=== PATIENT | male | born 1980 | race Caucasian/White ===

== ENCOUNTER 2017-04-25 13:16 | Outpatient (RCR) | payer OTHER ==
[~2017-04-25 13:16] MED LIST: FLEXERIL 1010 MG/TAB PO
== END 2017-05-15 14:40 | disposition still patient (30) ==
LOC: WSOH 13:16
DX: S29.012D Strain of muscle and tendon of back wall of thorax, subsequent encounter (principal); X50.0XXD Overexertion from strenuous movement or load, subsequent encounter; Y99.0 Civilian activity done for income or pay

== ENCOUNTER 2017-05-30 15:15 | Outpatient (RCR) | payer OTHER | END 2017-08-28 | disposition home or self-care (01) | LOC: WSOH | DX: S63.501A Unspecified sprain of right wrist, initial encounter (principal); X50.0XXA Overexertion from strenuous movement or load, initial encounter; Y99.0 Civilian activity done for income or pay ==